=== PATIENT | female | born 1990 | race Caucasian/White ===

== ENCOUNTER 2022-05-10 15:00 | Outpatient (RCR) | payer BC, SELFPAY | END 2022-08-23 13:53 | disposition home or self-care (01) | LOC: HO.PT 15:00 | PROVIDERS: PCP Internal Medicine; Visit Provider Advanced Practice Midwife | DX: M62.9 Disorder of muscle, unspecified (principal) | CPT/HCPCS: 97110; 97112; 97140; 97161 ==